=== PATIENT | female | born 1985 | race Caucasian/White ===

== ENCOUNTER 2017-12-14 19:49 | Emergency (ER) | payer OTHER ==
[~2017-12-14] VITALS: Ht 154.9 cm; Wt 68.0 kg
[2017-12-14] MEDS ORDERED: RITALIN20 MG (20:05)
[2017-12-14] MEDS ORDERED: PROVIGIL 200 M200 MG (20:06)
[2017-12-14] MEDS ORDERED: PROZAC 20 MG20 MG PO (20:10)
[2017-12-14] MEDS ORDERED: MOBIC7.5 MG PO (20:12)
[2017-12-14] MEDS ORDERED: FLEXERIL PO (20:14)
[2017-12-14] MEDS ORDERED: L-METHYLFOLATE15 M1 PO (20:16)
[2017-12-14] MEDS ORDERED: AMBIEN 5 MG TABL5 M1 PO (20:19)
[2017-12-14] MEDS ORDERED: VISTARIL 25 MG25 M1 PO (20:30)
[2017-12-14 20:46] VITALS: BP 119/68
== END 2017-12-14 20:47 | disposition home or self-care (01) ==
LOC: M.ERS 19:49
DX: F41.9 Anxiety disorder, unspecified (principal); Z76.0 Encounter for issue of repeat prescription; F32.9 Major depressive disorder, single episode, unspecified; Z85.828 Personal history of other malignant neoplasm of skin

== ENCOUNTER 2017-12-28 10:20 | Emergency (ER) | payer OTHER ==
[~2017-12-28] VITALS: Ht 154.9 cm; Wt 68.0 kg
[~2017-12-28 10:20] MED LIST: AMBIEN 5 MG TABL5 M1 PO; FLEXERIL PO; L-METHYLFOLATE15 M1 PO; MOBIC7.5 MG PO; PROVIGIL 200 M200 MG; PROZAC 20 MG20 MG PO; RITALIN20 MG; VISTARIL 25 MG25 M1 PO
[2017-12-28 10:30] VITALS: BP 140/75
[2017-12-28] MEDS ORDERED: VISTARIL 25 MG25 M1 PO (10:50)
== END 2017-12-28 10:56 | disposition home or self-care (01) ==
LOC: M.ERS 10:20
DX: F41.0 Panic disorder [episodic paroxysmal anxiety] (principal); Z76.0 Encounter for issue of repeat prescription; F32.9 Major depressive disorder, single episode, unspecified; Z85.828 Personal history of other malignant neoplasm of skin

== ENCOUNTER 2018-03-26 06:09 | Emergency (ER) | payer OTHER ==
[~2018-03-26] VITALS: Ht 154.9 cm; Wt 68.0 kg
[2018-03-26 06:33] LABS: ABSOLUTE EOSINOPHILS 0.1 thou/uL (0.0-0.7); ABSOLUTE LYMPHOCYTES 2.1 thou/uL (0.8-5.3); ABSOLUTE MONOCYTES 0.4 thou/uL (0.0-1.2); ABSOLUTE NEUTROPHILS 3.9 thou/uL (1.6-8.1); BASOPHILS 0.5 %; EOSINOPHILS 1.5 %; HEMOGLOBIN 13.5 gm/dL (12.0-15.0); MCH 28.2 pg (26.0-34.0); MCHC 32.9 g/dL (28.0-37.0); MCV 85.6 fL (80.0-100.0); MPV 8.3 fl. (7.2-11.1); NUCLEATED RBCS 0 /100WBC; PLATELET COUNT* 222 thou/uL (150-400); RBC 4.79 mil/uL (4.20-5.00); RDW-CV 13.7 % (10.5-14.5); WBC 6.5 thou/uL (4.0-11.0)
[2018-03-26 06:46] LABS: URINE BILIRUBIN NEGATIVE (Negative); URINE BLOOD NEGATIVE (Negative); URINE CLARITY CLEAR; URINE COLOR YELLOW; URINE GLUCOSE-RANDOM NEGATIVE (Negative); URINE KETONES NEGATIVE (Negative); URINE LEUKOCYTES-REFLEX NEGATIVE (Negative); URINE NITRITE-REFLEX NEGATIVE (Negative); URINE PROTEIN NEGATIVE (Negative); URINE SPECIFIC GRAVITY 1.025 (1.005-1.030); URINE UROBILINOGEN 0.2 E.U./dl (0.2-1.0)
[2018-03-26 06:49] LABS: ANION GAP 6 mmol/L (7-16); BUN 13 mg/dL (7-18); CALCIUM 8.1 mg/dL (8.5-10.1); CHLORIDE 104 mmol/L (98-107); CO2 26 mmol/L (21-32); CREATININE 0.8 mg/dL (0.6-1.3); GLUCOSE 100 mg/dL (70-99); POTASSIUM 3.3 mmol/L (3.5-5.1); SODIUM 136 mmol/L (136-145)
[2018-03-26 06:54] LABS: AMP/METHAMP Negative (Negative); BARBITURATES Negative (Negative); BENZODIAZEPINES Negative (Negative); COCAINE Negative (Negative); METHADONE Negative (Negative); OPIATES Negative (Negative); PCP Negative (Negative); THC Negative (Negative)
[2018-03-26 07:02] LABS: ALBUMIN 2.8 g/dL (3.4-5.0); ALKALINE PHOSPHATASE 91 U/L (46-116); LIPASE 323 U/L (73-393); MAGNESIUM 1.6 mg/dL (1.8-2.4); NT-PRO BRAIN NAT PEPTIDE 24 pg/mL (<300); SGOT 17 U/L (15-37); SGPT 18 U/L (30-65); TOTAL BILIRUBIN 0.2 mg/dL (<0.1-1.0); TOTAL PROTEIN 7.1 g/dL (6.4-8.2); TROPONIN-I LEVEL <0.06 ng/mL (<0.06)
[2018-03-26] MEDS ORDERED: XANAX 0.25 MG0.25 MG PO (10:17)
[2018-03-26 10:37] VITALS: BP 119/67
--- NOTE | 2018-03-26 10:49 | EKG ---
[place] [id number] ELECTROCARDIOGRAM REPORT Name: PARAG SHEPPARD Room: [facility] [place]#: [id number] Admission: 03/26/18 Attend Phys: Discharge: 03/26/18 Date of : 83 Report #: [id number] THIS REPORT FOR: //name// [facility] ED Test Date: 2018-03-26 Test Time: 06:17:50 Pat Name: PARAG SHEPPARD Department: Room: Gender: F [employer] Labor: NATASHA : 1985 Requested By: Ramon Dang Order Number: [id number] MD: Perry Joshi Measurements Intervals [place] Rate: 110 P: 82 DC: 180 QRS: 82 QRSD: 89 T: 32 QT: 327 QTc: 443 Interpretive Statements Sinus tachycardia No previous ECG available for comparison Electronically Signed On 03-26-2018 10:49:40 CDT by Perry Joshi [email or web address] <ELECTRONICALLY SIGNED> By: Perry Joshi MD, [facility] 03/26/18 1049 0617 0617 Perry Joshi MD, FACC /EPI
== END 2018-03-26 10:38 | disposition home or self-care (01) ==
LOC: M.ERS 06:09
PROVIDERS: Emergency Medicine Emergency Medical Services
DX: F41.9 Anxiety disorder, unspecified (principal); F32.9 Major depressive disorder, single episode, unspecified; G47.419 Narcolepsy without cataplexy; Z85.828 Personal history of other malignant neoplasm of skin; M19.90 Unspecified osteoarthritis, unspecified site